=== PATIENT | female | born 1975 | race Hispanic/Latino ===

== ENCOUNTER 2023-07-28 01:15 | Observation (INO) | payer OTHER, SELFPAY ==
[~2023-07-28] VITALS: Ht 157.5 cm; Wt 92.1 kg
[2023-07-28] VITALS (33 sets, daily range): BP systolic 101–169; BP diastolic 63–86; PULSE 71–129; RESP 12–20; O2SAT 95–100
[2023-07-28 01:42] LABS: BASOPHILS # (AUTO) 0.06 K/uL (0.00-0.20); BASOPHILS % (AUTO) 0.3 % (0.0-5.0); EOSINOPHILS # (AUTO) 0.38 K/uL (0.00-0.70); EOSINOPHILS % (AUTO) 2.1 % (0.0-8.0); HEMATOCRIT 29.8 % (36-48); IMMATURE GRANULOCYTE ABSOLUTE 0.07 K/uL (0-1); LYMPHOCYTES # (AUTO) 1.7 K/uL (1.0-4.8); LYMPHOCYTES % (AUTO) 9.2 % (21.0-51.0); MEAN CORPUSCULAR HEMOGLOBIN 21.1 pg (27.0-33.0); MEAN CORPUSCULAR HGB CONC 29.9 g/dL (32.0-36.0); MEAN CORPUSCULAR VOLUME 70.8 fL (79-99); MONOCYTES # (AUTO) 0.7 K/uL (0.1-1.0); MONOCYTES % (AUTO) 3.8 % (3.0-13.0); NEUTROPHILS # (AUTO) 15.4 K/uL (1.8-7.7); NEUTROPHILS % (AUTO) 84.2 % (40.0-77.0); PLATELET COUNT (AUTO) 421 K/uL (130-400); RED BLOOD CELL COUNT(AUTO) 4.21 MIL/uL (4.00-5.50); RED CELL DISTRIBUTION WIDTH 18.8 % (11.0-15.5); WHITE BLOOD COUNT (AUTO) 18.2 K/uL (4.8-10.8)
[2023-07-28 01:52] LABS: CREATININE 1.3 mg/dL (0.5-1.0); POTASSIUM 3.6 mmol/L (3.5-5.1)
[2023-07-28 01:57] LABS: ALBUMIN 3.6 g/dL (3.5-5.0); BILIRUBIN,TOTAL 0.2 mg/dL (0.2-1.0); TOTAL PROTEIN, SERUM 7.7 g/dL (6.0-8.3)
[2023-07-28 02:05] LABS: APPEARANCE,URINE CLEAR (CLEAR); BILIRUBIN,URINE NEGATIVE (NEGATIVE); COLOR,URINE LIGHT-YELLOW (YELLOW); GLUCOSE, URINE (UA) NEGATIVE (NEGATIVE); KETONES,URINE NEGATIVE (NEGATIVE); LEUKOCYTE ESTERASE ,URINE NEGATIVE Leu/uL (NEGATIVE); NITRATE,URINE NEGATIVE (NEGATIVE); OCCULT BLOOD,URINE LARGE (NEGATIVE); PROTEIN,URINE 300 mg/dL (NEGATIVE); UROBILINOGEN,URINE 0.2 mg/dL (0.2-1.0)
[2023-07-28 02:06] LABS: ADD UA MICROSCOPIC YES
[2023-07-28 02:08] LABS: BACTERIA,URINE RARE /HPF (None Seen); MUCUS,URINE RARE LPF (None Seen); RBC,URINE TNTC /HPF (0-1); SQUAMOUS EPITHELIAL CELL,UR RARE /HPF (0-2)
[2023-07-28 02:22] LABS: WBC MORPHOLOGY CONSISTENT W/DIFF
[2023-07-28] MEDS ORDERED: IOHEXOL 350 MG/ML 100ML INFUS..BTL IV ONE (02:56)
[2023-07-28] MEDS: ZOSYN 3.375GM +NS 50ML IV STA (03:36)
[2023-07-28] MEDS: MORPHINE 4 MG SYG IVP ONE (04:02)
[2023-07-28] MEDS: ONDANSETRON 4MG INJ IVP ONE (04:02)
[2023-07-28] MEDS ORDERED: MULT-1204 PO (04:59)
[2023-07-28] MEDS ORDERED: LEVO150C4 PO (04:59)
[2023-07-28] MEDS ORDERED: MECL-302 PO (04:59)
[2023-07-28] MEDS ORDERED: LISI20TA24 PO (04:59)
[2023-07-28] MEDS ORDERED: MONT-47 PO (04:59)
[2023-07-28] MEDS ORDERED: ALBU18HF7 IH (04:59)
[2023-07-28] MEDS ORDERED: ACETAMINOPHEN 650 MG SUPPOSITORY RC PRN (05:30)
[2023-07-28] MEDS ORDERED: HYDRALAZINE 20MG/ML VIAL IV PRN (05:30)
[2023-07-28] MEDS ORDERED: MAGNESIUM 2GM PREMIX 50ML 50 ML IV PRN (05:30)
[2023-07-28] MEDS ORDERED: DOCUSATE SODIUM 100 MG CAP PO PRN (05:30)
[2023-07-28] MEDS ORDERED: MORPHINE 2 MG SYG IVP PRN (05:30)
[2023-07-28] MEDS ORDERED: TEMAZEPAM 15 MG CAPSULE PO PRN (05:30)
[2023-07-28] MEDS ORDERED: DEXTROSE 50%-WATER 50 ML DISP.SYRIN IV PRN (05:30)
[2023-07-28] MEDS ORDERED: MECLIZINE HCL 25 MG TABLET PO PRN (05:30)
[2023-07-28] MEDS ORDERED: ONDANSETRON 4MG INJ IVP PRN (05:30)
[2023-07-28] MEDS ORDERED: LACTULOSE 20 GM/30 ML UDCUP PO PRN (05:30)
[2023-07-28] MEDS ORDERED: GLUCAGON 1MG KIT 1 MG ML IM PRN (05:30)
[2023-07-28] MEDS ORDERED: POTASSIUM CHLORIDE 10MEQ/100ML 100 ML IV PRN (05:30)
[2023-07-28] MEDS: LACTATED RINGERS 1000ML 1,000 ML IV SCH (05:42)
[2023-07-28] MEDS: IPRATROPIUM/ALBUTEROL SULFATE 3 ML SOLUTION IH SCH (06:14)
[2023-07-28] MEDS: LEVOTHYROXINE 150 MCG TABLET PO SCH (06:30)
[2023-07-28] MEDS ORDERED: (Albuterol Sulfate (Ventolin Hfa) 2 PUFF) IH PRN (06:30)
[2023-07-28] MEDS: INSULIN HUMULIN R 100 UNIT/ML 3ML SQ SCH (06:39)
[2023-07-28] MEDS: FOLIC ACID PO SCH (07:52)
[2023-07-28] MEDS: IRON PO SCH (07:52)
[2023-07-28] MEDS: MULTIVITAMIN PO SCH (07:52)
[2023-07-28] MEDS: LISINOPRIL 20 MG TABLET PO SCH (07:57)
[2023-07-28] MEDS: MONTELUKAST SODIUM 10 MG TAB PO SCH (07:57)
[2023-07-28] MEDS ORDERED: IPRATROPIUM/ALBUTEROL SULFATE 3 ML SOLUTION IH PRN (09:30)
[2023-07-28] MEDS: ZOSYN 3.375GM +NS 50ML IV SCH (11:17)
[2023-07-28] MEDS: ACETAMINOPHEN 325 MG TAB PO PRN (11:21)
[2023-07-28] MEDS ORDERED: MIDAZOLAM HCL 1 MG/ML 2ML VIAL ONE (16:35)
[2023-07-28] MEDS ORDERED: PROPOFOL 10 MG/ML 20ML VIAL IV ONE (16:35)
[2023-07-28] MEDS ORDERED: LIDOCAINE PF 100MG/5ML (2%) SYRINGE 5ML ONE (16:35)
[2023-07-28] MEDS ORDERED: ROCURONIUM BROMIDE 10MG/1ML 5ML VL ONE (16:35)
[2023-07-28] MEDS ORDERED: FENTANYL CITRATE PF 50 MCG/1 ML 2ML VIAL ONE (16:36)
[2023-07-28] MEDS ORDERED: LIDOCAINE HCL 4% LTA SOL 4 ML VIAL ONE (16:39)
[2023-07-28] MEDS ORDERED: DEXAMETHASONE SOD PHOSPHATE 10MG/ML 1ML VIAL ONE (16:48)
[2023-07-28] MEDS ORDERED: ONDANSETRON 4MG INJ ONE (16:48)
[2023-07-28] MEDS ORDERED: CEFAZOLIN SODIUM 1 GM VIAL ONE (16:57)
[2023-07-28] MEDS ORDERED: BUPIVACAINE/PF 0.25% 30ML VIAL IJ ONE (17:07)
[2023-07-28] MEDS ORDERED: LIDOCAINE 1%-EPI 1:100,000 20 ML VIAL ONE (17:08)
[2023-07-28] MEDS: LIDOCAINE 1%-EPI 1:100,000 20 ML VIAL IJ ONE (17:21)
[2023-07-28] MEDS ORDERED: NEOSTIGMINE METHYLSULFATE 1MG/ML IV ONE (17:22)
[2023-07-28] MEDS ORDERED: GLYCOPYRROLATE 0.2 MG/ML 5 ML VIAL ONE (17:22)
[2023-07-28] MEDS: MEPERIDINE-PF 25 MG/ML SYG ONE ×2 (18:13→18:29)
[2023-07-28] MEDS ORDERED: OXYCODONE/ACETAMIN 5/325MG TAB PO PRN (19:30)
[2023-07-28] MEDS: FAMOTIDINE 20MG VIAL IV SCH (19:57)
[2023-07-28] MEDS: HYDROMORPHONE 1 MG INJ IVP PRN (20:25)
[2023-07-29 00:55] VITALS: BP 111/70; PULSE 73
[2023-07-29 03:16] VITALS: BP 114/64; PULSE 69; RESP 19
[2023-07-29 06:53] LABS: BASOPHILS # (AUTO) 0.02 K/uL (0.00-0.20); BASOPHILS % (AUTO) 0.2 % (0.0-5.0); HEMATOCRIT 25.5 % (36-48); IMMATURE GRANULOCYTE ABSOLUTE 0.09 K/uL (0-1); LYMPHOCYTES # (AUTO) 1.1 K/uL (1.0-4.8); MEAN CORPUSCULAR HEMOGLOBIN 21.3 pg (27.0-33.0); MEAN CORPUSCULAR HGB CONC 29.8 g/dL (32.0-36.0); MEAN CORPUSCULAR VOLUME 71.6 fL (79-99); MONOCYTES # (AUTO) 0.3 K/uL (0.1-1.0); MONOCYTES % (AUTO) 2.1 % (3.0-13.0); NEUTROPHILS # (AUTO) 10.2 K/uL (1.8-7.7); NEUTROPHILS % (AUTO) 87.9 % (40.0-77.0); PLATELET COUNT (AUTO) 358 K/uL (130-400); RED BLOOD CELL COUNT(AUTO) 3.56 MIL/uL (4.00-5.50); RED CELL DISTRIBUTION WIDTH 18.6 % (11.0-15.5); WHITE BLOOD COUNT (AUTO) 11.6 K/uL (4.8-10.8)
[2023-07-29 07:05] VITALS: PULSE 78; RESP 18; O2SAT 97
[2023-07-29 07:05] LABS: HEMOGLOBIN A1C 6.1 % (4.0-6.0)
[2023-07-29 07:19] LABS: MAGNESIUM 1.9 mg/dL (1.80-2.40); POTASSIUM 3.9 mmol/L (3.5-5.1); THYROID STIMULATING HORMONE 31.86 uIU/mL (0.36-3.74)
[2023-07-29 07:48] VITALS: BP 110/68; PULSE 70; RESP 18
[2023-07-29 09:29] VITALS: O2SAT 96
[2023-07-29 11:23] VITALS: BP 123/81; PULSE 73; RESP 18
[2023-07-29] MEDS: LACTULOSE 20 GM/30 ML UDCUP PO ONE (13:10)
[2023-07-29] MEDS: BISACODYL 10 MG SUPP.RECT RC ONE ×2 (13:10→13:11)
== END 2023-07-29 14:09 | disposition home or self-care (01) ==
LOC: EDH 01:15 → EDHIP 01:16 → WSH 05:30
PROVIDERS: ADMIT Internal Medicine Critical Care Medicine; ATTEND Internal Medicine Critical Care Medicine
DX: A41.9 Sepsis, unspecified organism (principal); K35.80 Unspecified acute appendicitis; N30.00 Acute cystitis without hematuria; I12.9 Hypertensive chronic kidney disease with stage 1 through stage 4 chronic kidney disease, or unspecified chronic kidney disease; N18.2 Chronic kidney disease, stage 2 (mild); D63.1 Anemia in chronic kidney disease; N17.9 Acute kidney failure, unspecified; D75.839 Thrombocytosis, unspecified; E03.9 Hypothyroidism, unspecified; E66.9 Obesity, unspecified; J45.909 Unspecified asthma, uncomplicated; Z68.37 Body mass index [BMI] 37.0-37.9, adult; Z79.899 Other long term (current) drug therapy
CPT/HCPCS: 44970; 96365; 96366 ×2; 96375; 99285; 80053; 85025 ×2; 86850; 86900; 86901; 87088; 82948 ×6; 81001; 81025; 36415 ×2; 88304; 74177; 94640; 94664; 96376; 83036; 84443; 83735; 84100; 80048; 71045; G0378 ×33; J7030; A4452; A4344; J7120; J3490 ×6; J3010; J0690 ×2; J1170; J1100; J0665 ×2; J2001; J2250; J2704; J2405 ×2; J2270; J2710; J2543 ×5; J2175 ×2; Q9967; C1769 ×3; A4649 ×4; A4930